=== PATIENT | female | born 1960 | race Caucasian/White ===

== ENCOUNTER 2024-06-02 15:18 | Outpatient (CLI) | payer BC, SELFPAY ==
--- NOTE | 2024-06-02 12:06 | DI.RAD_ITS ---
Exam(s) XR KNEE RT 3V AP,LAT,VIJAY XR KNEE LT 3V AP,LAT,VIJAY XR STANDING ALIGNMENT EXAM: XR STANDING ALIGNMENT CLINICAL HISTORY: knee pain. TECHNIQUE: 2D digital imaging was performed. Standing AP views were performed from the pelvis throu gh the ankles. COMPARISON: CR XR KNEE RT 3V AP,LAT,VIJAY from 06/02/2024 CR XR KNEE LT 3V AP,LAT,VIJAY from 06/02/2024 FINDINGS: BONES: No acute fracture is present. No bony destructive lesion is seen. Leg length discrepancy: JOINTS: Knees: Minimal narrowing of the medial femoral tibial joint space of the right knee. Mild mo derate narrowing and periarticular spurring at the medial femoral tibial joint space of the left knee . The lateral femoral tibial and patellofemoral joint spaces are maintained bilaterally. The ankle joints are unremarkable. The hip joints are unremarkable. SOFT TISSUE: Normal. 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 No significant leg length discrepancy. DATA REPOSITORY: RADIATION DOSE DELIVERED:
== END 2024-06-02 15:19 | disposition home or self-care (01) ==
LOC: DIORS 15:19
PROVIDERS: Visit Provider Physician Assistant
DX: M17.0 Bilateral primary osteoarthritis of knee
CPT/HCPCS: 73562; 77073